=== PATIENT | female | born 1995 | race Caucasian/White ===

== ENCOUNTER 2018-02-26 20:53 | Emergency (ER) | payer OTHER ==
[~2018-02-26] VITALS: Ht 165.1 cm; Wt 52.2 kg
[2018-02-26 21:12] VITALS: BP 127/90
--- NOTE | 2018-02-26 21:14 | NUR ---
PT TRIAGED AND SENT TO ER LOBBY
--- NOTE | 2018-02-26 22:10 | NUR ---
PT IN LOBBY AWAITING MSE, NO CHANGE IN STATUS
[2018-02-26 22:29] LABS: APPEARANCE,URINE CLEAR (CLEAR)
[2018-02-26 22:30] LABS: BILIRUBIN,URINE NEGATIVE (NEGATIVE); BLOOD, URINE NEGATIVE (NEGATIVE); COLOR,URINE YELLOW (YELLOW); LEUKOCYTE ESTERASE ,URINE NEGATIVE (NEGATIVE); NITRITE, URINE NEGATIVE (NEGATIVE); UGLUCOSE NEGATIVE (NEGATIVE)
--- NOTE | 2018-02-26 22:42 | NUR ---
PATIENT AMBULATED TO ER BED 2.
--- NOTE | 2018-02-26 23:01 | NUR ---
PT PRESENTS TO ED WITH C/O WATCHING TV AND HAD CHILLS UP AND DOWN HER BODY. DENIES CP/SOB. DENIES PAIN. PT IS ALERT TO NAME, , EVENT, AND PLACE. PT BREATHING IS UNLABORED. PT DENIES N/V. PT PLACED INTO GOWN, IN BED, CONNECTED TO ALL MONITORS. PENDING MD STEINER. HX---NONE MEDS--NONE
[2018-02-27 01:06] LABS: BASOPHILS % (AUTO) 0.7 % (0.0-2.0); EOSINOPHILS # (AUTO) 0.1 K/uL (0-0.4); EOSINOPHILS % (AUTO) 1.3 % (0.0-4.0); HEMATOCRIT 38.5 % (36-48); HEMOGLOBIN 12.3 g/dL (12.0-16.0); LYMPHOCYTES % (AUTO) 30.8 % (20.5-51.1); MEAN CORPUSCULAR HEMOGLOBIN 27 pg (27-31); MEAN CORPUSCULAR HGB CONC 32 g/dL (33-37); MEAN CORPUSCULAR VOLUME 84.1 fL (80-94); MONOCYTES # (AUTO) 0.5 K/uL (0.8-1.0); MONOCYTES % (AUTO) 8.3 % (1.7-9.3); NEUTROPHILS # (AUTO) 3.7 K/uL (1.8-7.7); NEUTROPHILS % (AUTO) 58.9 % (42.2-75.2); PLATELET COUNT (AUTO) 198 K/uL (140-450); RED BLOOD CELL COUNT(AUTO) 4.58 MIL/uL (4.20-5.40); WHITE BLOOD COUNT (AUTO) 6.3 K/uL (4.8-10.8)
--- NOTE | 2018-02-27 01:13 | NUR ---
PT RESTING. NAD. VSS. WILL CONTINUE TO MONITOR.
[2018-02-27 01:30] LABS: ALBUMIN 3.9 g/dL (3.4-5.0); CARBON DIOXIDE 28.2 mmol/L (21-32); CREATININE 0.7 mg/dL (0.6-1.3); POTASSIUM 4.2 mmol/L (3.5-5.1); TOTAL BILIRUBIN 0.5 mg/dL (0.0-1.0)
[2018-02-27 02:09] VITALS: BP 106/64
--- NOTE | 2018-02-27 02:09 | NUR ---
Patient discharged with v/s stable. Written and verbal after care instructions given and explained. Patient verbalized understanding. Ambulatory with steady gait. All questions addressed prior to discharge. Advised to follow up with PMD.
== END 2018-02-27 02:09 | disposition home or self-care (01) ==
LOC: MED 20:53
DX: F41.9 Anxiety disorder, unspecified (principal)
CPT/HCPCS: 36415; 80053; 81003; 81025; 85025; 99284

== ENCOUNTER 2020-01-22 08:49 | Emergency (ER) | payer MEDICAID, OTHER ==
[~2020-01-22] VITALS: Ht 165.1 cm; Wt 48.5 kg
[2020-01-22 08:54] VITALS: BP 154/82
[2020-01-22] MEDS ORDERED: DOPPLER MC ONE (09:07)
[2020-01-22 10:07] VITALS: BP 154/82
== END 2020-01-22 10:07 | disposition home or self-care (01) ==
LOC: MED 08:49
DX: O26.852 Spotting complicating pregnancy, second trimester (principal); Z3A.15 15 weeks gestation of pregnancy
CPT/HCPCS: 81002; 81025; 99282